=== PATIENT | female | born 1995 | race Caucasian/White ===

== ENCOUNTER 2017-06-05 19:20 | Emergency (ER) | payer OTHER ==
--- NOTE | ~2017-06-05 | CT4 ---
[facility] A Service of [facility] & [facility] RADIOLOGY TEXT RESULTS PATIENT: SIDDHARTH GARCIA LOCATION: SED : 94 UNIT #: [id number] AGE: [address]: Shila Hardwick MD SEX: F ORDER DR: [id number] [address] [address] [id number] E MR#: [id number] Acc #: [id number] NAME: SIDDHARTH GARCIA : 1995 SEX: F STUDY DATE/TIME: 06/05/2017 21:56 UNIT: SED ROOM: STUDY DESCRIPTION: CT Abd and Pelv Wo Cont Attending Physician: Shila Hardwick M.D. Ordering Physician: Shila Hardwick M.D. Primary Care Physician: Samantha Mead MEDICAL IMAGING REPORT This report is preliminary unless electronic signature is present. EXAM CT abdomen and pelvis, without contrast HISTORY Sudden onset right flank pain and back pain since noon with urinary frequency. COMPARISON There is no comparison. TECHNIQUE Axial 3-mm images were obtained through the abdomen and pelvis without IV or oral contrast. This CT exam was performed with one or more of the following radiation dose reduction techniques: automatic exposure control, adjustment of mA and/or kV according to patient size, and iterative reconstruction. FINDINGS Lung bases are clear. The liver, gallbladder, spleen, pancreas, and adrenal glands are normal. The left kidney is normal. The right kidney has a 1-mm nonobstructing stone and also has mild hydronephrosis. The right ureter is slightly dilated, and there is a ureterovesical juncture stone measuring 2 mm in diameter. The aorta is normal in size, and there is no adenopathy. The bowel is normal. The uterus and adnexal regions are normal. There is minimal free fluid in the pelvis. The bladder is normal. The bones are unremarkable. IMPRESSION 1. 2-mm right ureterovesical juncture stone causing mild hydronephrosis, and there is also a 1-mm nonobstructing stone in the right kidney. 2. Otherwise, normal. [facility] A Service of [facility] & [facility] RADIOLOGY TEXT RESULTS PATIENT: SIDDHARTH GARCIA LOCATION: SED : 94 UNIT #: [id number] AGE: [address]: Shila Hardwick MD SEX: F ORDER DR: Dictated by... Hari Fu M.D. THIS IS AN ELECTRONICALLY VERIFIED REPORT Hari Fu M.D. at 06/06/2017 1:37 PM LANA/naveed TD: 06/06/2017 12:24 JOB #: [id number] MEDICAL IMAGING REPORT Page 1 of 1
[~2017-06-05 19:20] MED LIST: AMOXICILLIN500 M1 PO; BENADRYL PO; BENADRYL25 M1 PO; NO MEDICATIONS; PREDNISONE10 MG/DOSE PO; PREDNISONE50 MG PO
[2017-06-05 20:47] LABS: URINE SOURCE CLEAN CATCH
[2017-06-05 20:49] LABS: URINE APPEARANCE HAZY; URINE BILIRUBIN NEG (NEG); URINE BLOOD 2+ (NEG); URINE COLOR YELLOW; URINE GLUCOSE NEG (NORM); URINE LEUKOCYTE ESTERASE TRACE (NEG); URINE NITRATE NEG (NEG); URINE PH 7.5 (5-8); URINE PROTEIN TRACE (NEG); URINE UROBILINOGEN 0.2 MG/DL (NORM)
[2017-06-05 20:55] LABS: MICRO INDICATED? YES; URINE KETONE 3+ (NEG)
[2017-06-05 20:56] LABS: URINE BACTERIA NEG (NEG); URINE MUCUS PRESENT; URINE RBC 25-50 /[HPF] (0-2); URINE SQUAMOUS EPITHELIAL CELL MODERATE /[HPF]
[2017-06-05 21:21] LABS: BASOPHIL# 0.1 X10e3 (0-0.3); BASOPHIL% 0.6 % (0-2.5); EOSINOPHIL% 0.3 % (0.0-7.0); HEMATOCRIT 44.5 % (35.0-45.0); HEMOGLOBIN 14.7 gm/dL (12.0-16.0); LYMPHOCYTE# 1.6 X10e3 (1.0-3.5); LYMPHOCYTE% 11.1 % (17.0-45.0); MEAN CELL VOLUME 92.3 FL (83-96); MEAN CORPUSCULAR HEMOGLOBIN 30.6 PG (28-34); MEAN CORPUSCULAR HGB CONC 33.1 g/dL (30-36); MEAN PLATELET VOLUME 9.4 FL (6.5-11.5); MONOCYTE# 0.6 X10e3 (0-1.0); MONOCYTE% 4.3 % (3.0-12.0); NEUTROPHIL# 11.8 X10e3 (1.5-7.1); NEUTROPHIL% 83.7 % (40-75); PLATELET COUNT 415 X10e3 (140-420); RED BLOOD COUNT 4.82 X10e (3.90-5.30); RED CELL DISTRIBUTION WIDTH 15.1 % (11.0-15.5); WHITE BLOOD COUNT 14.1 X10e3 (4.0-10.5)
[2017-06-05 21:22] LABS: DIFF IND NO
[2017-06-05 21:30] LABS: ALBUMIN SERUM 5.1 g/dL (3.5-5.0); BILIRUBIN, DIRECT 0.1 mg/dL (0.0-0.2); BILIRUBIN,INDIRECT 0.8 mg/dL (0.0-0.9); BILIRUBIN,TOTAL 0.9 mg/dL (0.2-2.0); BUN/CREATININE RATIO 15.55; CALCIUM SERUM 9.9 mg/dL (8.4-10.2); CREATININE SERUM 0.9 mg/dL (0.6-1.4); GLOM FILT RATE Estimated 90.8 mL/min (>60); POTASSIUM 4.1 mmol/L (3.5-5.1); PROTEIN TOTAL SERUM 8.5 g/dL (6.0-8.3)
[2017-06-05 21:33] LABS: AMPHETAMINE NEG (NEG); BARBITURATES NEG (NEG); BENZODIAZEPINES NEG (NEG); COCAINE NEG (NEG); MARIJUANA POS (NEG); OPIATES NEG (NEG); TRICYCLIC ANTIDEPRESSANTS NEG (NEG); U METHADONE NEG (NEG)
== END 2017-06-05 23:59 | disposition home or self-care (01) ==
LOC: SED 19:20
PROVIDERS: Emergency Medicine
DX: F17.210 Nicotine dependence, cigarettes, uncomplicated (principal); N20.1 Calculus of ureter
CPT/HCPCS: 36415; 74176; 80048; 80076; 80307; 81003; 82947; 83605; 84703; 85025; 96361; 96374; 96375; 99284; J1885; J2405

== ENCOUNTER 2017-06-09 09:33 | Emergency (ER) | payer OTHER ==
--- NOTE | ~2017-06-09 | US77 ---
[facility] A Service of [facility] RADIOLOGY TEXT RESULTS PATIENT: SIDDHARTH GARCIA LOCATION: SED : 94 UNIT #: [id number] AGE: [address]: Génesis Polk MD SEX: F ORDER DR: [id number] [address] [address] [id number] E MR#: [id number] Acc #: [id number] NAME: SIDDHARTH GARCIA : 1995 SEX: F STUDY DATE/TIME: 06/09/2017 11:24 UNIT: SED ROOM: STUDY DESCRIPTION: US Kidney Bilateral Complete Attending Physician: Génesis Polk M.D. Ordering Physician: Génesis Polk M.D. Primary Care Physician: Samantha Mead MEDICAL IMAGING REPORT This report is preliminary unless electronic signature is present. EXAM Renal ultrasound. INDICATION Right flank pain since June 05. Previous history of kidney stones. TECHNIQUE Wagner-scale imaging of the kidneys and urinary bladder was performed. COMPARISON Comparison with CT of the abdomen and pelvis from 06/05/2017. FINDINGS The right kidney measures 10.1 cm in length. There is no hydronephrosis on the right. No sonographic evidence of shadowing calculus. On the left, the left kidney measures 10.2 cm in length and there is no hydronephrosis on the left. No sonographic evidence of shadowing calculus. Survey view of the urinary bladder is unremarkable. IMPRESSION No hydronephrosis. No sonographic evidence of shadowing calculi. Dictated by... Mook Pitts M.D. THIS IS AN ELECTRONICALLY VERIFIED REPORT Mook Pitts M.D. at 06/09/2017 5:04 PM PILI/angela TD: 06/09/2017 13:47 [facility] A Service of [facility] RADIOLOGY TEXT RESULTS PATIENT: SIDDHARTH GARCIA LOCATION: SED : 94 UNIT #: [id number] AGE: [address]: Génesis Polk MD SEX: F ORDER DR: JOB #: [id number] MEDICAL IMAGING REPORT Page 1 of 1
--- NOTE | ~2017-06-09 | CT16 ---
[facility] A Service of [facility] & [facility] RADIOLOGY TEXT RESULTS PATIENT: SIDDHARTH GARCIA LOCATION: SED : [birth year] UNIT #: [id number] AGE: [address]: Génesis Polk MD SEX: F ORDER DR: [id number] [address] [address] [id number] E MR#: [id number] Acc #: [id number] NAME: SIDDHARTH GARCIA : 1995 SEX: F STUDY DATE/TIME: 06/09/2017 12:06 UNIT: SED ROOM: STUDY DESCRIPTION: CT Angio Chest for PE Attending Physician: Génesis Polk M.D. Ordering Physician: Génesis Polk M.D. Primary Care Physician: Samantha Mead MEDICAL IMAGING REPORT This report is preliminary unless electronic signature is present. EXAM CT angiogram of the chest with PE protocol 06/09/2017 1206 hours HISTORY 21-year-old who experienced 1 episode of coughing up blood this morning. Evaluate for pulmonary embolism. COMPARISON Chest x-ray 06/09/[address] abdomen of 06/05/2017. TECHNIQUE Dynamic helical CT angiographic images were obtained from the thoracic inlet through the adrenal glands. 3-D sagittal and coronal reconstructions were performed. Contrast was Isovue-370 100 mL IV. Total exam DLP is 494 mGy-cm. This CT exam was performed with one or more of the following radiation dose reduction techniques: automatic control, adjustment of mA and/or kV according to patient size, and iterative reconstruction. FINDINGS Images through the thoracic inlet demonstrate no thyroid lesion or adenopathy. Images through the chest demonstrate diagnostic quality opacification of the pulmonary arteries which are normal in caliber. There are no filling defects to suggest the presence of pulmonary emboli. The aorta, cardiac chambers and pericardium are normal. There is a small amount of normal appearing thymic tissue in the anterior mediastinum. There is no pathologic adenopathy. There is no pericardial or pleural fluid. The esophagus appears normal. Lung window images demonstrate no acute pulmonary densities or nodules. No bronchiectasis is seen. There is no effusion. Limited views through the upper abdomen are negative. [facility] A Service of [facility] & [facility] RADIOLOGY TEXT RESULTS PATIENT: SIDDHARTH GARCIA LOCATION: SED : [birth year] UNIT #: [id number] AGE: [address]: Génesis Polk MD SEX: F ORDER DR: IMPRESSION 1. No evidence of pulmonary embolism. Normal aorta. 2. There is no adenopathy. 3. The lungs are clear and there are no effusions. Dictated by... Eveline Thomas M.D. THIS IS AN ELECTRONICALLY VERIFIED REPORT Eveline Thomas M.D. at 06/09/2017 2:31 PM PATRICK/mariela TD: 06/09/2017 13:57 JOB #: [id number] MEDICAL IMAGING REPORT Page 1 of 1
--- NOTE | ~2017-06-09 | CR72 ---
[facility]. [facility] A Service of [facility] & [facility] RADIOLOGY TEXT RESULTS PATIENT: SIDDHARTH GARCIA LOCATION: SED : [birth year] UNIT #: [id number] AGE: [address]: Génesis Polk MD SEX: F ORDER DR: [id number] [address] [address] [id number] E MR#: [id number] Acc #: [id number] NAME: SIDDHARTH GARCIA : 1995 SEX: F STUDY DATE/TIME: 06/09/2017 10:49 UNIT: SED ROOM: STUDY DESCRIPTION: CR Chest Single View Portable Attending Physician: Génesis Polk M.D. Ordering Physician: Génesis Polk M.D. Primary Care Physician: Samantha Mead MEDICAL IMAGING REPORT This report is preliminary unless electronic signature is present. EXAM Chest portable 06/09/2017 1049 hours HISTORY 21-year-old who coughed up blood this morning, 1 time. Occasional smoker x3 years. COMPARISON 03/10/2010. FINDINGS Upright portable chest film demonstrates normal cardiac, mediastinal and hilar contours. The lungs appear clear. There is no effusion or pneumothorax. IMPRESSION Normal portable upright chest. Dictated by... Eveline Thomas M.D. THIS IS AN ELECTRONICALLY VERIFIED REPORT Eveline Thomas M.D. at 06/09/2017 2:31 PM PATRICK/vanesa TD: 06/09/2017 12:11 JOB #: [id number] MEDICAL IMAGING REPORT Page 1 of 1
[2017-06-09] MEDS ORDERED: IBUPROFEN (09:43)
[2017-06-09] MEDS ORDERED: HYDROCODON-ACE1 EAC7 PO (09:44)
[2017-06-09] MEDS ORDERED: FLOMAX0.4 M1 PO (09:44)
[2017-06-09 10:36] LABS: URINE SOURCE CLEAN CATCH
[2017-06-09 10:38] LABS: BASOPHIL% 0.6 % (0-2.5); EOSINOPHIL# 0.1 X10e3 (0-0.7); EOSINOPHIL% 1.4 % (0.0-7.0); HEMATOCRIT 39.4 % (35.0-45.0); HEMOGLOBIN 13.2 gm/dL (12.0-16.0); LYMPHOCYTE# 1.5 X10e3 (1.0-3.5); LYMPHOCYTE% 25.1 % (17.0-45.0); MEAN CELL VOLUME 92.9 FL (83-96); MEAN CORPUSCULAR HEMOGLOBIN 31.1 PG (28-34); MEAN CORPUSCULAR HGB CONC 33.5 g/dL (30-36); MEAN PLATELET VOLUME 8.9 FL (6.5-11.5); MONOCYTE# 0.3 X10e3 (0-1.0); MONOCYTE% 5.4 % (3.0-12.0); NEUTROPHIL% 67.5 % (40-75); PLATELET COUNT 319 X10e3 (140-420); RED BLOOD COUNT 4.25 X10e (3.90-5.30); RED CELL DISTRIBUTION WIDTH 14.9 % (11.0-15.5); WHITE BLOOD COUNT 5.9 X10e3 (4.0-10.5)
[2017-06-09 10:39] LABS: URINE APPEARANCE SL CLOUDY; URINE BILIRUBIN NEG (NEG); URINE BLOOD TRACE-LYSED (NEG); URINE COLOR YELLOW; URINE GLUCOSE NEG (NORM); URINE KETONE NEG (NEG); URINE LEUKOCYTE ESTERASE NEG (NEG); URINE NITRATE NEG (NEG); URINE PROTEIN NEG (NEG); URINE SPECIFIC GRAVITY >=1.030 (1.003-1.035); URINE UROBILINOGEN 0.2 MG/DL (NORM)
[2017-06-09 10:47] LABS: MICRO INDICATED? YES
[2017-06-09 10:51] LABS: URINE BACTERIA 1+ (NEG); URINE RBC 0-2 /[HPF] (0-2); URINE SQUAMOUS EPITHELIAL CELL MANY /[HPF]
[2017-06-09 10:55] LABS: DIFF IND NO
[2017-06-09 10:57] LABS: CALCIUM SERUM 9.1 mg/dL (8.4-10.2); GLOM FILT RATE Estimated 79.9 mL/min (>60); POTASSIUM 3.9 mmol/L (3.5-5.1)
[2017-06-09 11:10] LABS: POC - CKMB <1.0 ng/mL (0.0-7.9); POC - TROPONIN <0.05 ng/mL (<=0.05)
== END 2017-06-09 13:17 | disposition home or self-care (01) ==
LOC: SED 09:33
PROVIDERS: Emergency Medicine
DX: R04.2 Hemoptysis (principal); R10.9 Unspecified abdominal pain; F17.200 Nicotine dependence, unspecified, uncomplicated
CPT/HCPCS: 36415; 71010; 71275; 76775; 80048; 81003; 82553; 84484; 84703; 85025; 85379; 99284; Q9967